=== PATIENT | female | born 1950 | race Caucasian/White ===

== ENCOUNTER → 2016-12-29 15:04 | Outpatient (CLI) | payer OTHER ==
[2016-06-08 12:01] VITALS: BMI 24.6
[~2016-12-29 15:04] MED LIST: FLUOXETINE20 MG/5 ML PO; VITAMIN D5000 UNIT PO; XANAX0.5 MG PO; ZOFRAN4 MG PO; [UNRECOGNIZED DRUG - OTHER] PO
[2016-12-29 17:07] LABS: BASOPHILS 0.8 % (0-2); EOSINOPHILS 1.3 % (0-7); HEMATOCRIT 44.9 % (36.0-48.0); HEMOGLOBIN 14.8 g/dL (12-16); IMMATURE GRANULOCYTES 0.2 % (0-5); LYMPHOCYTES 38.1 % (15-50); MCH 30.8 pg (26.0-34.0); MCV 93.5 fL (80.0-100.0); MONOCYTES 8.6 % (2-11); PLATELET COUNT 184 10x3/uL (130-400); WBC 6.3 10x3/uL (4.8-10.8)
[2016-12-29 17:57] LABS: ALBUMIN 3.9 g/dL (3.4-5.0); ALKALINE PHOSPHATASE 74 U/L (46-116); ALT (SGPT) 25 U/L (10-68); CALC OSMOLALITY 280 mosm/kg (275-300); CALCIUM 9.1 mg/dL (8.5-10.1); CHLORIDE - SERUM 105 mmol/L (98-107); CREATININE - SERUM 0.6 mg/dL (0.6-1.3); GLUCOSE 83 mg/dL (74-106); LDH 193 U/L (81-234); PROTEIN - SERUM 6.6 g/dL (6.4-8.2); SODIUM 142 mmol/L (136-145); T4 THYROXIN - FREE 0.92 ng/dL (0.76-1.46); THYROID STIMULATING HORMONE 4.07 uIU/mL (0.36-3.74); UREA NITROGEN 10 mg/dL (7-18); URIC ACID 4.8 mg/dL (2.6-7.2); eGFR NON AFRICAN AMERICAN > 90 mL/min (90-120)
[2016-12-29 18:10] LABS: ERYTHROCYTE SEDIMENTATION RATE 1 mm/hr (0-30)
[2017-01-01 11:13] LABS: T3 - FREE 2.9 pg/mL (2.0-4.4)
[2017-01-01 12:12] LABS: VITAMIN D 25 HYDROXY 55.1 ng/mL (30.0-100.0)
== END | disposition home or self-care (01) ==
LOC: D.LAB 15:04
PROVIDERS: Family Medicine Adult Medicine
DX: R26.81 Unsteadiness on feet (principal); E55.9 Vitamin D deficiency, unspecified; E03.9 Hypothyroidism, unspecified; I49.8 Other specified cardiac arrhythmias; M25.561 Pain in right knee

== ENCOUNTER → 2017-10-18 09:11 | Outpatient (CLI) | payer MEDICARE, OTHER ==
[2016-06-08 12:01] VITALS: BMI 24.6
[2017-10-18 10:10] LABS: BASOPHILS 0.9 % (0-2); EOSINOPHILS 3.1 % (0-7); HEMATOCRIT 41.9 % (36.0-48.0); HEMOGLOBIN 13.8 g/dL (12-16); LYMPHOCYTES 39.3 % (15-50); MCH 30.9 pg (26.0-34.0); MCHC 32.9 g/dL (31.0-37.0); MCV 93.9 fL (80.0-100.0); MEAN PLATELET VOLUME 11.3 fL (7.4-10.4); MONOCYTES 8.1 % (2-11); NEUTROPHILS 48.6 % (40-80); PLATELET COUNT 193 10x3/uL (130-400); RBC 4.46 10x6/uL (4.00-5.40); RDW 13.4 % (11.5-14.5); WBC 4.5 10x3/uL (4.8-10.8)
[2017-10-18 10:25] LABS: ALBUMIN 3.8 g/dL (3.4-5.0); ALKALINE PHOSPHATASE 47 U/L (46-116); ALT (SGPT) 47 U/L (10-68); BILIRUBIN - TOTAL 0.69 mg/dL (0.2-1.3); CALC OSMOLALITY 281 mosm/kg (275-300); CHLORIDE - SERUM 105 mmol/L (98-107); CHOL - HDL RATIO 2.1 ratio (2.3-4.1); CHOLESTEROL, TOTAL 253 mg/dL (0-200); CREATININE - SERUM 0.7 mg/dL (0.6-1.3); GLUCOSE 95 mg/dL (74-106); HDL CHOLESTEROL 119 mg/dL (32-96); LDL CHOLESTEROL 126 mg/dL (0-100); LDL-HDL RATIO 1.1 ratio (1.5-3.5); MAGNESIUM - SERUM 1.8 mg/dL (1.8-2.4); POTASSIUM - SERUM 4.5 mmol/L (3.5-5.1); PROTEIN - SERUM 6.8 g/dL (6.4-8.2); SODIUM 142 mmol/L (136-145); TRIGLYCERIDE 44 mg/dL (30-200); UREA NITROGEN 11 mg/dL (7-18); eGFR NON AFRICAN AMERICAN 89 mL/min (90-120)
[2017-10-19 08:18] LABS: VITAMIN D 25 HYDROXY 71.3 ng/mL (30.0-100.0)
== END | disposition home or self-care (01) ==
LOC: D.MAMMO 08-07 13:00 → D.LAB 09:11
PROVIDERS: Family Medicine Adult Medicine
DX: R53.83 Other fatigue (principal); M81.0 Age-related osteoporosis without current pathological fracture; E78.2 Mixed hyperlipidemia; E55.9 Vitamin D deficiency, unspecified

== ENCOUNTER → 2017-12-25 12:45 | Outpatient (CLI) | payer MEDICARE, OTHER ==
[~2017-12-25] VITALS: Ht 162.6 cm; Wt 71.2 kg
[2017-12-25 14:40] VITALS: Ht 162.6 cm; Wt 71.2 kg
== END | disposition home or self-care (01) ==
LOC: D.FANS 12:45
DX: E66.3 Overweight (principal)

== ENCOUNTER → 2017-12-31 13:25 | Outpatient (CLI) | payer MEDICARE, OTHER ==
[2017-12-25 14:40] VITALS: BMI 26.9
== END | disposition home or self-care (01) ==
LOC: D.MAMMO 13:25
DX: Z12.31 Encounter for screening mammogram for malignant neoplasm of breast (principal)

== ENCOUNTER → 2018-01-29 12:46 | Outpatient (CLI) | payer MEDICARE, OTHER ==
[2017-12-25 14:40] VITALS: BMI 26.9
== END | disposition home or self-care (01) ==
LOC: D.FANS 12:46
DX: E66.3 Overweight (principal)

== ENCOUNTER → 2018-01-30 21:20 | Outpatient (CLI) | payer MEDICARE, OTHER ==
[2017-12-25 14:40] VITALS: BMI 26.9
== END | disposition home or self-care (01) ==
LOC: D.MAMMO 13:30
DX: R92.8 Other abnormal and inconclusive findings on diagnostic imaging of breast (principal)

== ENCOUNTER → 2018-06-04 18:51 | Outpatient (CLI) | payer OTHER ==
[2017-12-25 14:40] VITALS: BMI 26.9
[2018-06-04 19:08] LABS: BASOPHILS 0.6 % (0-2); EOSINOPHILS 1.4 % (0-7); HEMATOCRIT 43.9 % (36.0-48.0); HEMOGLOBIN 14.7 g/dL (12-16); IMMATURE GRANULOCYTES 0.2 % (0-5); LYMPHOCYTES 40.1 % (15-50); MCHC 33.5 g/dL (31.0-37.0); MCV 92.6 fL (80.0-100.0); MEAN PLATELET VOLUME 12.7 fL (7.4-10.4); MONOCYTES 7.5 % (2-11); NEUTROPHILS 50.2 % (40-80); PLATELET COUNT 220 10x3/uL (130-400); RBC 4.74 10x6/uL (4.00-5.40); RDW 13.9 % (11.5-14.5); WBC 6.4 10x3/uL (4.8-10.8)
[2018-06-04 19:26] LABS: ALBUMIN 4.1 g/dL (3.4-5.0); ALKALINE PHOSPHATASE 45 U/L (46-116); ALT (SGPT) 37 U/L (10-68); BILIRUBIN - TOTAL 0.46 mg/dL (0.2-1.3); CALC OSMOLALITY 279 mosm/kg (275-300); CALCIUM 9.1 mg/dL (8.5-10.1); CARBON DIOXIDE 30.8 mmol/L (21.0-32.0); CHLORIDE - SERUM 104 mmol/L (98-107); CHOL - HDL RATIO 2.6 ratio (2.3-4.1); CHOLESTEROL, TOTAL 318 mg/dL (0-200); CREATININE - SERUM 0.7 mg/dL (0.6-1.3); GLUCOSE 93 mg/dL (74-106); HDL CHOLESTEROL 124 mg/dL (32-96); LDL CHOLESTEROL 184 mg/dL (0-100); LDL-HDL RATIO 1.5 ratio (1.5-3.5); POTASSIUM - SERUM 4.9 mmol/L (3.5-5.1); PROTEIN - SERUM 6.8 g/dL (6.4-8.2); SODIUM 141 mmol/L (136-145); TRIGLYCERIDE 50 mg/dL (30-200); UREA NITROGEN 11 mg/dL (7-18); eGFR NON AFRICAN AMERICAN 89 mL/min (90-120)
== END | disposition home or self-care (01) ==
LOC: D.LABREF 18:51
PROVIDERS: Orthopaedic Surgery
DX: E66.9 Obesity, unspecified (principal)